=== PATIENT | female | born 1980 | race Caucasian/White ===

== ENCOUNTER 2017-03-05 08:41 | Emergency (ER) | payer OTHER, SELFPAY ==
[2017-03-05] MEDS ORDERED: Lidocaine 1% w/Epinephrine 1:100K 20 ML VIAL ONE (09:19)
[2017-03-05] MEDS ORDERED: Acetaminophen/Codeine 30-300mg Tablet ONE (09:55)
[2017-03-05] MEDS ORDERED: Ondansetron ODT 4 MG TAB ONE (09:56)
[2017-03-05] MEDS ORDERED: Sulfameth/Trimethoprim DS 800-160mg TAB ONE (09:56)
[2017-03-05] MEDS ORDERED: Ibuprofen 800 MG TAB ONE (09:56)
== END 2017-03-05 10:02 | disposition home or self-care (01) ==
LOC: MADERS 08:41
DX: L02.215 Cutaneous abscess of perineum (principal)
CPT/HCPCS: 56405; 87070; 87077; 87186; 87205; J2001; Q0162

== ENCOUNTER 2018-11-25 09:01 | Emergency (ER) | payer OTHER ==
[2018-11-25] MEDS ORDERED: Lidocaine 1% 20 ML MDV ONE (09:39)
[2018-11-25] MEDS ORDERED: cefTRIAXone\\ROCEPHIN 1 GM VIAL ONE (09:39)
== END 2018-11-25 10:05 | disposition home or self-care (01) ==
LOC: MADERS 09:01
DX: I80.8 Phlebitis and thrombophlebitis of other sites (principal); L03.113 Cellulitis of right upper limb; F17.210 Nicotine dependence, cigarettes, uncomplicated
CPT/HCPCS: 96372; J0696; J2001

== ENCOUNTER 2018-12-23 12:50 | Emergency (ER) | payer OTHER ==
[~2018-12-23 12:50] MED LIST: Iopamidol 370 76% 125 ML VIAL FS ONE; Sodium Chloride 0.9% 100 ML BAG ONE
[2018-12-23] MEDS ORDERED: Enoxaparin Sodium 80 MG/0.8 ML SYRINGE ONE (13:20)
[2018-12-23] MEDS ORDERED: Metoprolol Tartrate 5 MG/5 ML VIAL ONE (13:20)
[2018-12-23] MEDS ORDERED: Aspirin Chewable 81 MG TAB ONE (13:20)
[2018-12-23 13:26] LABS: #Eosinphils 0.3 thou/uL (0.0-0.7); #Lymphocytes 1.8 thou/uL (1.20-3.40); #Monocytes 0.6 thou/uL (0.11-0.59); %Basophils 0.6 % (0.0-1.0); %Eosinophils 3.5 % (0.0-10.0); %Lymphocytes 23.7 % (21.0-51.0); %Monocytes 8.2 % (0.0-10.0); %Neutrophils 63.9 % (42.0-75.0); Hemoglobin 7.7 g/dL (12.0-16.0); Mean Corpuscular HGB CONC 27.6 g/dL (32.0-36.0); Mean Corpuscular Hemoglobin 16.4 pg (27.0-31.0); Mean Corpuscular Volume 59.7 fL (78.0-98.0); Mean Platelet Volume 7.4 fL (7.4-10.4); Platelet Count 390 thou/uL (130-400); RBC Distribution Width 16.4 % (11.5-14.5); Red Blood Cell (RBC) Count 4.71 mill/uL (4.20-5.40); White Blood Cell (WBC) Count 7.8 thou/uL (4.8-10.8)
[2018-12-23 13:35] LABS: Anisocytosis MODERATE=16-30 cells (100X) (0-5/hpf); Microcytosis MODERATE=15-30 cells (100X) (0-5/hpf); Poikilocytosis MODERATE=16-30 cells (100X) (0-5/hpf)
[2018-12-23 13:36] LABS: Ovalocytes MODERATE= 6-15 cells (100X) (0-1/hpf); Platelet Morphology Comment Appears Adequate
--- NOTE | 2018-12-23 13:36 | RAD ---
RADIOGRAPH CHEST 1 VIEW: HISTORY: 38-year-old female with chest pain. FINDINGS: There are no air space densities, pulmonary edema, pneumothorax, or cardiomegaly. The lateral costop hrenic angles are sharp. IMPRESSION: No acute cardiopulmonary findings. jn POS: [facility]
[2018-12-23 13:37] LABS: ALT (SGPT) 27 U/L (8-55); AST (SGOT) 29 U/L (5-34); Albumin 4.3 g/dL (3.5-5.0); Alkaline Phosphatase 120 U/L (40-150); Anion Gap 14 mmol/L (10-20); BUN (Urea Nitrogen) 9 mg/dL (7.0-18.7); Bilirubin, Total 0.2 mg/dL (0.2-1.2); Calc. Creatinine Clearance 0 mL/min (70-130); Calcium 9.1 mg/dL (7.8-10.44); Carbon Dioxide 23 mmol/L (22-29); Chloride 106 mmol/L (98-107); Estimated GFR-MDRD Greater than 90; Globulin 3.2 g/dL (2.4-3.5); Glucose 93 mg/dL (70-105); Lipase 33 U/L (8-78); Potassium 3.8 mmol/L (3.5-5.1); Protein, Total 7.5 g/dL (6.0-8.3); Sodium 139 mmol/L (136-145)
[2018-12-23 13:48] LABS: Bilirubin Negative (Negative); Blood, Urine Negative (Negative); Clarity Clear (Clear); Glucose, Urine (Dipstick) Negative (Negative); Leukocyte Negative (Negative); Nitrite Negative (Negative); Protein, Urine (Dipstick) Negative (Neg-Trace); Urobilinogen 0.2 mg/dL (0.2-1.0)
[2018-12-23 14:06] LABS: Amphetamine Not Detected (NotDetected); Barbiturates Screen Not Detected (NotDetected); Benzodiazepine Screen Not Detected (NotDetected); Cocaine Metabolite Screen Not Detected (NotDetected); Medtox Control Line Valid? VALID (VALID); Methadone Not Detected (NotDetected); Methamphetamine Not Detected (NotDetected); Opiate Screen Not Detected (NotDetected); Oxycodone Screen Not Detected (NotDetected); Phencyclidine (PCP) Not Detected (NotDetected); THC/Cannabinoid Screen Not Detected (NotDetected); Tricyclic Screen Not Detected (NotDetected)
--- NOTE | 2018-12-23 15:13 | CT ---
CT PULMONARY ANGIOGRAM WITH IV CONTRAST AND 3D MIP RECONSTRUCTIONS: Date: 12/23/18 PROVIDED CLINICAL HISTORY: Chest pain. FINDINGS: There is no evidence for central or segmental pulmonary embolus. The heart, pericardium, and great ve ssels demonstrate an unremarkable CT appearance. The lungs are free of significant opacity. No pleural fluid or pneumothorax apparent. The airway appears patent and of normal caliber. No evidence for thoracic lymph node enlargement. The visualized portions of the upper abdomen demonstrate no acute abnormality. Postoperative changes of gastric sleeve procedure are partially visualized. Osseous structures demonstrate no concerning osteoblastic or osteolytic lesions. IMPRESSION: No evidence for central or segmental pulmonary embolus. POS: [facility]
[2018-12-23 16:02] LABS: Troponin I 0.086 ng/mL (< 0.028)
== END 2018-12-23 17:00 | disposition short-term general hospital (02) ==
LOC: MADERS 12:50
DX: R07.2 Precordial pain (principal); D50.0 Iron deficiency anemia secondary to blood loss (chronic); R79.89 Other specified abnormal findings of blood chemistry; F17.210 Nicotine dependence, cigarettes, uncomplicated
CPT/HCPCS: 36415; 71045; 71275; 80053; 80306; 81003; 83690; 84484; 85025; 85379; 93005; 94760; 96372; 96374; J1650; J7050; Q9967

== ENCOUNTER 2018-12-28 12:13 | Emergency (ER) | payer OTHER ==
[2018-12-28] MEDS ORDERED: Cephalexin 500 MG CAP ONE (12:38)
== END 2018-12-28 12:41 | disposition home or self-care (01) ==
LOC: MADERS 12:13
DX: I80.9 Phlebitis and thrombophlebitis of unspecified site (principal); L03.114 Cellulitis of left upper limb; Z71.6 Tobacco abuse counseling; Z79.899 Other long term (current) drug therapy
CPT/HCPCS: 99406

== ENCOUNTER 2019-03-10 11:30 | Emergency (ER) | payer OTHER, SELFPAY ==
--- NOTE | 2019-03-10 11:55 | RAD ---
PORTABLE CHEST: Date: 03/10/19 INDICATION: Dyspnea. COMPARISON: 12/23/18. FINDINGS: The lungs are clear. No evidence of infiltrate. Heart and mediastinum appear normal. There is a calci fied granuloma in the right mid lung, which is stable in appearance. IMPRESSION: Negative chest. POS: [facility]
[2019-03-10 12:25] LABS: ALT (SGPT) 31 U/L (8-55); AST (SGOT) 32 U/L (5-34); Albumin 4.5 g/dL (3.5-5.0); Alkaline Phosphatase 93 U/L (40-150); Anion Gap 15 mmol/L (10-20); BUN (Urea Nitrogen) 9 mg/dL (7.0-18.7); Bilirubin, Total 0.3 mg/dL (0.2-1.2); Calc. Creatinine Clearance 0 mL/min (70-130); Calcium 9.5 mg/dL (7.8-10.44); Carbon Dioxide 24 mmol/L (22-29); Chloride 107 mmol/L (98-107); Estimated GFR-MDRD 81; Globulin 3.5 g/dL (2.4-3.5); Glucose 83 mg/dL (70-105); Potassium 4.2 mmol/L (3.5-5.1); Sodium 142 mmol/L (136-145)
[2019-03-10 12:26] LABS: #Basophils 0.1 thou/uL (0.0-0.2); #Eosinphils 0.1 thou/uL (0.0-0.7); #Monocytes 0.6 thou/uL (0.11-0.59); #Neutrophils 4.7 thou/uL (1.40-6.50); %Basophils 1.1 % (0.0-1.0); %Lymphocytes 26.2 % (21.0-51.0); %Monocytes 7.5 % (0.0-10.0); %Neutrophils 63.3 % (42.0-75.0); Hemoglobin 12.3 g/dL (12.0-16.0); Mean Corpuscular HGB CONC 30.2 g/dL (32.0-36.0); Mean Corpuscular Hemoglobin 20.9 pg (27.0-31.0); Mean Corpuscular Volume 69.3 fL (78.0-98.0); Mean Platelet Volume 8.8 fL (7.4-10.4); Platelet Count 298 thou/uL (130-400); RBC Distribution Width 20.3 % (11.5-14.5); Red Blood Cell (RBC) Count 5.86 mill/uL (4.20-5.40); White Blood Cell (WBC) Count 7.4 thou/uL (4.8-10.8)
[2019-03-10 12:27] LABS: Anisocytosis SLIGHT = 6-15 cells (100X) (0-5/hpf); MDiff Complete? YES; Microcytosis SLIGHT = 6-15 cells (100X) (0-5/hpf)
[2019-03-10] MEDS ORDERED: Aspirin Chewable 81 MG TAB ONE (12:29)
== END 2019-03-10 14:40 | disposition home or self-care (01) ==
LOC: MADERS 11:30
DX: R07.9 Chest pain, unspecified (principal); D64.9 Anemia, unspecified; F17.210 Nicotine dependence, cigarettes, uncomplicated
CPT/HCPCS: 36415; 71045; 80053; 83880; 84484; 85025; 93005

== ENCOUNTER 2021-11-02 22:19 | Emergency (ER) | payer MEDICAID, SELFPAY ==
[2021-11-02 22:55] LABS: Bilirubin Negative (Negative); Blood, Urine Negative (Negative); Clarity Turbid (Clear); Glucose, Urine (Dipstick) Negative (Negative); Ketone, Urine Negative (Negative); Leukocyte Trace (Negative); Nitrite Negative (Negative); Protein, Urine (Dipstick) Negative (Neg-Trace); pH, Urine 7.5 (5.0-9.0)
[2021-11-02 22:56] LABS: RBC/HPF 0-3 HPF (0-3); WBC/HPF 0-3 HPF (0-3)
[2021-11-02] MEDS ORDERED: Cyclobenzaprine 10 MG TAB ONE (22:58)
[2021-11-02] MEDS ORDERED: Ibuprofen 400 MG TAB ONE (22:58)
== END 2021-11-02 23:35 | disposition home or self-care (01) ==
LOC: MADERS 22:19
DX: S30.0XXA Contusion of lower back and pelvis, initial encounter (principal); W08.XXXA Fall from other furniture, initial encounter; D64.9 Anemia, unspecified; F17.210 Nicotine dependence, cigarettes, uncomplicated
CPT/HCPCS: 72100; 81003; 81015